=== PATIENT | male | born 1940 | race Asian ===

== ENCOUNTER 2016-07-25 13:47 | Inpatient (IN) | payer MEDICARE, MEDICAID ==
[~2016-07-25] VITALS: Ht 177.8 cm; Wt 59.0 kg
[2016-07-25] MEDS ORDERED: DIGOXIN0.125 MG/2 ORAL (13:52)
[2016-07-25] MEDS ORDERED: SINGULAIR10 MG ORAL (13:52)
[2016-07-25] MEDS ORDERED: METFORMIN HCL500 M1 ORAL (13:52)
[2016-07-25] MEDS ORDERED: VICODIN HP 10-1 EACH ORAL (13:52)
[2016-07-25] MEDS ORDERED: SIMVASTATIN5 MG ORAL (13:52)
[2016-07-25] MEDS ORDERED: LYRICA75 M1 ORAL (13:52)
[2016-07-25] MEDS ORDERED: HUMALOG100 UNIT/4 SUBQ (13:52)
[2016-07-25] MEDS ORDERED: PROSCAR5 MG ORAL (13:52)
[2016-07-25] MEDS ORDERED: Albuterol ud Inhalation HHN ONE (14:15)
[2016-07-25] MEDS ORDERED: Ipratropium 0.02% Inh Soln 2.5ml UD HHN ONE (14:15)
[2016-07-25] MEDS ORDERED: Solu-MEDROL 125mg Inj IVP ONE (14:15)
[2016-07-25 15:00] VITALS: BP 101/78
--- NOTE | 2016-07-25 15:10 | Diagnostic Imaging Report ---
Indication: Dyspnea Comparison: None A single view chest radiograph was obtained. Findings: No definite infiltrate or pulmonary vascular congestion identified. The heart is normal in size. The aorta is mildly enlarged consistent with atherosclerotic vascular disease. The bones are osteopenic. Impression: No acute disease
[2016-07-25 15:13] LABS: EOSINOPHILS % (AUTO) 1.2 % (0.0-3.0); LYMPHOCYTES % (AUTO) 10.9 % (20.0-45.0); MEAN CORPUSCULAR HEMOGLOBIN 31.3 PG (27.0-31.0); MEAN CORPUSCULAR HGB CONC 32.4 G/DL (32.0-36.0); MEAN CORPUSCULAR VOLUME 97 FL (80-99); MEAN PLATELET VOLUME 7.6 FL (6.5-10.1); MONOCYTES % (AUTO) 7.9 % (1.0-10.0); PLATELET COUNT 309 K/UL (150-450); RED BLOOD COUNT 5.42 M/UL (4.70-6.10); RED CELL DISTRIBUTION WIDTH 10.5 % (11.6-14.8); WHITE BLOOD COUNT 16.5 K/UL (4.8-10.8)
--- NOTE | 2016-07-25 15:15 | Emergency Room Report ---
History of Present Illness General Chief Complaint: Pain Source: Patient, Family Member, EMS Present Illness HPI 75-year-old male presents to ED for evaluation. Patient states he feels short of breath and has chest pain. Also noting pain in his neck and back. States having symptoms for many weeks to months now. Patient is a poor historian. Daughter is at bedside. States that patient has history of asthma, smokes. States that he cannot breathe. Also having a cough which is dry for several weeks now. Denies fevers or chills. Patient is also complaining of pain to his neck and back. Pain is chronic. Patient has had steroid injections in his neck and back for many years now. Pain is throbbing, 8/10. Nonradiating. No other aggravating or relieving factors. Denies any other associated symptoms Allergies: Coded Allergies: No Known Allergies (Unverified , 07/25/16) Patient History Past Medical History: DM, HTN, AFib, asthma Past Surgical History: none Pertinent Family History: none Social History: Reports: smoking, Denies: alcohol use, drug use Immunizations: UTD Reviewed Nursing Documentation: PMH: Agreed, PSxH: Agreed Nursing Documentation-PMH Past Medical History: No History, Except For Hx Cardiac Problems: Yes - AFIB Hx Hypertension: Yes Hx Asthma: Yes Hx Diabetes: Yes Review of Systems All Other Systems: negative except mentioned in HPI Physical Exam Vital Signs Date Time Temp Pulse Resp B/P Pulse Ox O2 Delivery O2 Flow Rate FiO2 07/25/16 13:41 98.2 98 20 140/73 96 Room Air 07/25/16 14:16 21 Sp02 EP Interpretation: reviewed, normal General Appearance: no apparent distress, alert, GCS 15, non-toxic Head: normocephalic Eyes: bilateral eye PERRL, bilateral eye normal inspection ENT: normal ENT inspection Neck: normal inspection Respiratory: crackles, wheezing Cardiovascular #1: regular rate, rhythm, no edema Gastrointestinal: normal bowel sounds, non tender, soft, non-distended, no guarding, no rebound Rectal: deferred Genitourinary: no CVA tenderness Musculoskeletal: normal inspection Neurologic: alert, oriented x3, responsive, motor strength/tone normal, sensory intact, speech normal Psychiatric: normal inspection Skin: normal inspection Lymphatic: normal inspection Medical Decision Making Diagnostic Impression: Primary Impression: COPD exacerbation Additional Impressions: Hyperkalemia, diminished renal excretion ARF (acute renal failure) Qualified Codes: N17.9 - Acute kidney failure, unspecified ER Course Hospital Course 75-year-old M presenting to ED with SOB. h/o COPD Differential diagnoses include: Pneumonia, CHF exacerbation, pneumothorax, fluid overload Clinical course Patient placed on stretcher. On cardiac/vascular sonographer with stable vitals. After initial history and physical, I ordered nebulizer treatments. I ordered labs, IV fluids, EKG, chest x-ray, blood cultures, UA. Labs - noted leukocytosis noted, hemoglobin/hematocrit stable, K 6.2, BUN/Cr elevated. CXR - hyperinflated lungs. no infiltrates abx given. IVFs given. given insulin, calcium, kayexelate Case discussed with Dr. Meyer and he agreed to the patient to his service for further care and support I feel this is a highly complex case requiring extensive working including EKG/ Rhythm strip, Xray/CT/US, Blood/urine lab work, repeat exams while in ED, and administration of strong opiates/narcotics for pain control, admission to hospital or close patient follow up. Diagnosis - COPD exacerbation, hyperkalemia, ARF Patient admitted to telemetry in serious condition Labs Test 07/25/16 14:40 07/25/16 15:40 White Blood Count 16.5 K/UL (4.8-10.8) Red Blood Count 5.42 M/UL (4.70-6.10) Hemoglobin 17.0 G/DL (14.2-18.0) Hematocrit 52.4 % (42.0-52.0) Mean Corpuscular Volume 97 FL (80-99) Mean Corpuscular Hemoglobin 31.3 PG (27.0-31.0) Mean Corpuscular Hemoglobin Concent 32.4 G/DL (32.0-36.0) Red Cell Distribution Width 10.5 % (11.6-14.8) Platelet Count 309 K/UL (150-450) Mean Platelet Volume 7.6 FL (6.5-10.1) Neutrophils (%) (Auto) 79.0 % (45.0-75.0) Lymphocytes (%) (Auto) 10.9 % (20.0-45.0) Monocytes (%) (Auto) 7.9 % (1.0-10.0) Eosinophils (%) (Auto) 1.2 % (0.0-3.0) Basophils (%) (Auto) 1.0 % (0.0-2.0) Sodium Level 128 mEQ/L (135-145) Potassium Level 6.2 mEQ/L (3.4-4.9) Chloride Level 88 mEQ/L (98-107) Carbon Dioxide Level 26 mEQ/L (20-30) Anion Gap 14 (5-15) Blood Urea Nitrogen 27 mg/dL (7-23) Creatinine 1.7 mg/dL (0.7-1.2) Estimat Glomerular Filtration Rate mL/min (>60) Glucose Level 302 mg/dL (74-106) Lactic Acid Level 1.90 mmol/L (0.66-2.22) Calcium Level 10.1 mg/dL (8.6-10.2) Total Bilirubin 0.5 mg/dL (0.0-1.2) Aspartate Amino Transf (AST/SGOT) 23 U/L (5-40) Alanine Aminotransferase (ALT/SGPT) 26 U/L (3-41) Alkaline Phosphatase 108 U/L (40-129) Total Creatine Kinase 113 U/L (38-174) Creatine Kinase MB 4.1 ng/mL (< 6.7) Creatine Kinase MB Relative Index 3.6 Troponin I < 0.30 ng/mL (<=0.30) Pro-B-Type Natriuretic Peptide 163 pg/mL (0-450) Total Protein 8.8 g/dL (6.6-8.7) Albumin 4.7 g/dL (3.5-5.2) Globulin 4.1 g/dL Albumin/Globulin Ratio 1.1 (1.0-2.7) Urine Color Pale yellow Urine Appearance Clear Urine pH 7 (4.5-8.0) Urine Specific [place] 1.010 (1.005-1.035) Urine Protein 1+ (NEGATIVE) Urine Glucose (UA) 4+ (NEGATIVE) Urine Ketones Negative (NEGATIVE) Urine Occult Blood Negative (NEGATIVE) Urine Nitrite Negative (NEGATIVE) Urine Bilirubin Negative (NEGATIVE) Urine Urobilinogen Normal MG/DL (0.0-1.0) Urine Leukocyte Esterase Negative (NEGATIVE) Urine RBC 0-2 /HPF (0 - 0) Urine WBC 0-2 /HPF (0 - 0) Urine Squamous Epithelial Cells None /LPF (NONE/OCC) Urine Amorphous Sediment Few /LPF (NONE) Urine Bacteria Few /HPF (NONE) EKG Diagnostic Results Rate: normal Rhythm: NSR ST Segments: no acute changes ASA given to the pt in ED: No Rhythm Strip Diag. Results EP Interpretation: yes Rhythm: NSR, no PVC's, no ectopy Chest X-Ray Diagnostic Results EP Interpretation: Yes Findings: no consolidation, no effusion, no pneumothorax, no acute cardiopulmonary disease Number of Views: 1 Last Vital Signs Date Time Temp Pulse Resp B/P Pulse Ox O2 Delivery O2 Flow Rate FiO2 07/25/16 14:41 93 21 100 Room Air 21 07/25/16 13:41 98.2 140/73 Status: improved Disposition: ADMITTED INPATIENT Condition: Serious Referrals: NON PHYSICIAN (PCP) ROSELINE BARLOW M.D. Jul 25, 2016 15:15
[2016-07-25 15:30] LABS: TROPONIN I < 0.30 ng/mL (<=0.30)
[2016-07-25 15:33] LABS: ALANINE AMINOTRANSFERASE 26 U/L (3-41); ALBUMIN/GLOBULIN RATIO 1.1 (1.0-2.7); ANION GAP 14 (5-15); ASPARTATE AMINO TRANSFERASE 23 U/L (5-40); CALCIUM 10.1 mg/dL (8.6-10.2); CARBON DIOXIDE 26 mEQ/L (20-30); CHLORIDE 88 mEQ/L (98-107); CREATININE 1.7 mg/dL (0.7-1.2); HEMOLYSIS 7; SODIUM 128 mEQ/L (135-145); TOTAL PROTEIN 8.8 g/dL (6.6-8.7)
[2016-07-25 15:35] LABS: POTASSIUM 6.2 mEQ/L (3.4-4.9)
[2016-07-25 15:44] LABS: CKMB 4.1 ng/mL (< 6.7)
[2016-07-25] MEDS ORDERED: Sodium Polystyrene Sulfonate 15gm Powder ORAL ONE (15:45)
[2016-07-25] MEDS ORDERED: Calcium Gluconate 1gm/10ml vial IVP ONE (15:45)
[2016-07-25 16:06] LABS: APPEARANCE,URINE CLEAR; KETONES,URINE NEGATIVE (NEGATIVE); LEUKOCYTE ESTERASE ,URINE NEGATIVE (NEGATIVE); NITRITE,URINE NEGATIVE (NEGATIVE); PH,URINE 7 (4.5-8.0); PROTEIN,URINE 1+ (NEGATIVE); UROBILINOGEN,URINE NORMAL MG/DL (0.0-1.0)
[2016-07-25 16:16] LABS: RBC,URINE 0-2 /HPF (0 - 0); WBC,URINE 0-2 /HPF (0 - 0)
[2016-07-25 16:17] LABS: AMORPHOUS SEDIMENT,UR FEW /LPF; BACTERIA,URINE FEW /HPF
[2016-07-25 18:23] VITALS: BP 115/67
--- NOTE | 2016-07-25 19:13 | History and Physical ---
History of Present Illness General Date patient seen: Jul 25, 2016 Reason for Hospitalization: dysnea Present Illness HPI 75-year-old male with hx of COPD, DM, presents to ED for evaluation of short of breath, difficulty breathing and chest pain.Patient has history of asthma, and still smokes. Also having a cough which is dry for several weeks now. No other aggravating or relieving factors. Denies any other associated symptoms. Patient is admitted for exacerbation of COPD and respiratory insufficiency. Allergies: Coded Allergies: No Known Allergies (Unverified , 07/25/16) Medication History Scheduled Digoxin* (Digoxin*), Unknown Dose ORAL DAILY, (Reported) Finasteride* (Proscar*), Unknown Dose ORAL DAILY, (Reported) Metformin Hcl* (Metformin Hcl*), Unknown Dose ORAL TWICE A DAY, (Reported) Montelukast Sodium* (Singulair*), Unknown Dose ORAL DAILY, (Reported) Pregabalin* (Lyrica*), Unknown Dose ORAL THREE TIMES A DAY, (Reported) Simvastatin (Zocor), Unknown Dose ORAL BEDTIME, (Reported) Scheduled PRN Hydrocodone/Acetaminophen 10-300 Mg Tablet (Vicodin Hp 10-300 Mg Tablet), Unknown Dose ORAL Q4H PRN for For Pain, (Reported) Miscellaneous Medications Insulin Lispro (Humalog), Unknown Dose SUBQ, (Reported) Patient History Healthcare decision maker Resuscitation status Advanced Directive on File Review of Systems Constitutional: Reports: malaise Respiratory: Reports: cough, shortness of breath Cardiovascular: Reports: palpitations, syncope Gastrointestinal: Reports: no symptoms Genitourinary: Reports: no symptoms Musculoskeletal: Reports: no symptoms Skin: Reports: no symptoms Physical Exam General Appearance: WD/WN, alert Lines, tubes and drains: peripheral, PICC HEENT: normocephalic, atraumatic Respiratory/Chest: chest wall non-tender, lungs clear Cardiovascular/Chest: normal peripheral pulses, regular rhythm Abdomen: normal bowel sounds, non tender Genitourinary/Rectal: normal genital exam, normal rectal exam Extremities: normal range of motion Last 24 Hour Vital Signs Date Time Temp Pulse Resp B/P Pulse Ox O2 Delivery O2 Flow Rate FiO2 07/25/16 18:23 97.2 97 14 115/67 96 Room Air 07/25/16 15:00 98.1 98 21 101/78 99 Room Air 21 07/25/16 14:41 93 21 100 Room Air 21 07/25/16 14:16 21 07/25/16 14:16 88 20 Room Air 21 07/25/16 14:16 88 20 96 Room Air 21 07/25/16 13:41 98.2 98 20 140/73 96 Room Air Laboratory Tests Test 07/25/16 14:40 07/25/16 15:40 White Blood Count 16.5 K/UL (4.8-10.8) H Red Blood Count 5.42 M/UL (4.70-6.10) Hemoglobin 17.0 G/DL (14.2-18.0) Hematocrit 52.4 % (42.0-52.0) H Mean Corpuscular Volume 97 FL (80-99) Mean Corpuscular Hemoglobin 31.3 PG (27.0-31.0) H Mean Corpuscular Hemoglobin Concent 32.4 G/DL (32.0-36.0) Red Cell Distribution Width 10.5 % (11.6-14.8) L Platelet Count 309 K/UL (150-450) Mean Platelet Volume 7.6 FL (6.5-10.1) Neutrophils (%) (Auto) 79.0 % (45.0-75.0) H Lymphocytes (%) (Auto) 10.9 % (20.0-45.0) L Monocytes (%) (Auto) 7.9 % (1.0-10.0) Eosinophils (%) (Auto) 1.2 % (0.0-3.0) Basophils (%) (Auto) 1.0 % (0.0-2.0) Sodium Level 128 mEQ/L (135-145) L Potassium Level 6.2 mEQ/L (3.4-4.9) *H Chloride Level 88 mEQ/L (98-107) L Carbon Dioxide Level 26 mEQ/L (20-30) Anion Gap 14 (5-15) Blood Urea Nitrogen 27 mg/dL (7-23) H Creatinine 1.7 mg/dL (0.7-1.2) H Estimat Glomerular Filtration Rate mL/min (>60) Glucose Level 302 mg/dL (74-106) H Lactic Acid Level 1.90 mmol/L (0.66-2.22) Calcium Level 10.1 mg/dL (8.6-10.2) Total Bilirubin 0.5 mg/dL (0.0-1.2) Aspartate Amino Transf (AST/SGOT) 23 U/L (5-40) Alanine Aminotransferase (ALT/SGPT) 26 U/L (3-41) Alkaline Phosphatase 108 U/L (40-129) Total Creatine Kinase 113 U/L (38-174) Creatine Kinase MB 4.1 ng/mL (< 6.7) Creatine Kinase MB Relative Index 3.6 Troponin I < 0.30 ng/mL (<=0.30) Pro-B-Type Natriuretic Peptide 163 pg/mL (0-450) Total Protein 8.8 g/dL (6.6-8.7) H Albumin 4.7 g/dL (3.5-5.2) Globulin 4.1 g/dL Albumin/Globulin Ratio 1.1 (1.0-2.7) Urine Color Pale yellow Urine Appearance Clear Urine pH 7 (4.5-8.0) Urine Specific [place] 1.010 (1.005-1.035) Urine Protein 1+ (NEGATIVE) H Urine Glucose (UA) 4+ (NEGATIVE) H Urine Ketones Negative (NEGATIVE) Urine Occult Blood Negative (NEGATIVE) Urine Nitrite Negative (NEGATIVE) Urine Bilirubin Negative (NEGATIVE) Urine Urobilinogen Normal MG/DL (0.0-1.0) Urine Leukocyte Esterase Negative (NEGATIVE) Urine RBC 0-2 /HPF (0 - 0) H Urine WBC 0-2 /HPF (0 - 0) Urine Squamous Epithelial Cells None /LPF (NONE/OCC) Urine Amorphous Sediment Few /LPF (NONE) H Urine Bacteria Few /HPF (NONE) Height (Feet): 5 Height (Inches): 10.00 Weight (Pounds): 130 Assessment/Plan Problem List: (1) Acute respiratory failure ICD Codes: J96.00 - Acute respiratory failure, unspecified whether with hypoxia or hypercapnia SNOMED: 38018510 Qualifiers: Qualified Codes: J96.01 - Acute respiratory failure with hypoxia (2) ATN (acute tubular necrosis) ICD Codes: N17.0 - Acute kidney failure with tubular necrosis SNOMED: 40354414 (3) COPD exacerbation ICD Codes: J44.1 - Chronic obstructive pulmonary disease with (acute) exacerbation SNOMED: 539313226, 795363929 (4) Acute asthma exacerbation ICD Codes: J45.901 - Unspecified asthma with (acute) exacerbation SNOMED: 645045918 Assessment/Plan IV steroids IV antibiotics renal w/u cardiology w/u check dig level sliding scale JAN GIL Jul 25, 2016 19:13
[2016-07-25] MEDS ORDERED: DuoNeb 0.5-3(2.5)mg/3ml neb HHN PRN (19:15)
[2016-07-25] MEDS ORDERED: Ketorolac 30mg Inj IV PRN (19:15)
[2016-07-25] MEDS ORDERED: Promethazine/Codeine 5ml UD ORAL PRN (19:15)
[2016-07-25] MEDS ORDERED: Morphine Sulfate 2mg/ml Inj IVP PRN (19:15)
[2016-07-25] MEDS ORDERED: LORazepam Inj 2mg/ml 1ml IV PRN (19:15)
[2016-07-25] MEDS ORDERED: Nitroglycerin Subl 0.4mg tab (Bottle Of 25) SL PRN (19:15)
[2016-07-25 20:31] LABS: APPEARANCE,URINE CLEAR; KETONES,URINE NEGATIVE (NEGATIVE); LEUKOCYTE ESTERASE ,URINE NEGATIVE (NEGATIVE); NITRITE,URINE NEGATIVE (NEGATIVE); PH,URINE 5 (4.5-8.0); PROTEIN,URINE 1+ (NEGATIVE); UROBILINOGEN,URINE NORMAL MG/DL (0.0-1.0)
[2016-07-25 20:38] LABS: BACTERIA,URINE FEW /HPF; RBC,URINE 0-2 /HPF (0 - 0); WBC,URINE 0-2 /HPF (0 - 0)
--- NOTE | 2016-07-25 20:38 | Cardiology Progress Note ---
Assessment/Plan Assessment/Plan chest pain low back and neck pain hyponatremia hyperkalemia dm htn tobacoo use do serial enzyme ekg echo venous dupelx ivf cortisol Subjective Cardiovascular: Denies: chest pain - rigth side and the abd Respiratory: Reports: shortness of breath Gastrointestinal/Abdominal: Reports: abdominal pain Genitourinary: Denies: burning Objective Last 24 Hour Vital Signs Date Time Temp Pulse Resp B/P Pulse Ox O2 Delivery O2 Flow Rate FiO2 07/25/16 20:02 112 18 Room Air 21 07/25/16 18:23 97.2 97 14 115/67 96 Room Air 07/25/16 15:00 98.1 98 21 101/78 99 Room Air 21 07/25/16 14:41 93 21 100 Room Air 21 07/25/16 14:16 21 07/25/16 14:16 88 20 Room Air 21 07/25/16 14:16 88 20 96 Room Air 21 07/25/16 13:41 98.2 98 20 140/73 96 Room Air General Appearance: alert Neck: no JVD Cardiovascular: normal rate, regular rhythm Respiratory/Chest: lungs clear Abdomen: normal bowel sounds, non tender, soft Extremities: no swelling Laboratory Tests Test 07/25/16 14:40 07/25/16 15:40 07/25/16 18:15 07/25/16 20:00 White Blood Count 16.5 K/UL (4.8-10.8) H Red Blood Count 5.42 M/UL (4.70-6.10) Hemoglobin 17.0 G/DL (14.2-18.0) Hematocrit 52.4 % (42.0-52.0) H Mean Corpuscular Volume 97 FL (80-99) Mean Corpuscular Hemoglobin 31.3 PG (27.0-31.0) H Mean Corpuscular Hemoglobin Concent 32.4 G/DL (32.0-36.0) Red Cell Distribution Width 10.5 % (11.6-14.8) L Platelet Count 309 K/UL (150-450) Mean Platelet Volume 7.6 FL (6.5-10.1) Neutrophils (%) (Auto) 79.0 % (45.0-75.0) H Lymphocytes (%) (Auto) 10.9 % (20.0-45.0) L Monocytes (%) (Auto) 7.9 % (1.0-10.0) Eosinophils (%) (Auto) 1.2 % (0.0-3.0) Basophils (%) (Auto) 1.0 % (0.0-2.0) Sodium Level 128 mEQ/L (135-145) L Potassium Level 6.2 mEQ/L (3.4-4.9) *H Chloride Level 88 mEQ/L (98-107) L Carbon Dioxide Level 26 mEQ/L (20-30) Anion Gap 14 (5-15) Blood Urea Nitrogen 27 mg/dL (7-23) H Creatinine 1.7 mg/dL (0.7-1.2) H Estimat Glomerular Filtration Rate mL/min (>60) Glucose Level 302 mg/dL (74-106) H Lactic Acid Level 1.90 mmol/L (0.66-2.22) Calcium Level 10.1 mg/dL (8.6-10.2) Total Bilirubin 0.5 mg/dL (0.0-1.2) Aspartate Amino Transf (AST/SGOT) 23 U/L (5-40) Alanine Aminotransferase (ALT/SGPT) 26 U/L (3-41) Alkaline Phosphatase 108 U/L (40-129) Total Creatine Kinase 113 U/L (38-174) Creatine Kinase MB 4.1 ng/mL (< 6.7) Creatine Kinase MB Relative Index 3.6 Troponin I < 0.30 ng/mL (<=0.30) Pro-B-Type Natriuretic Peptide 163 pg/mL (0-450) Total Protein 8.8 g/dL (6.6-8.7) H Albumin 4.7 g/dL (3.5-5.2) Globulin 4.1 g/dL Albumin/Globulin Ratio 1.1 (1.0-2.7) Urine Color Pale yellow Pale yellow Urine Appearance Clear Clear Urine pH 7 (4.5-8.0) 5 (4.5-8.0) Urine Specific [place] 1.010 (1.005-1.035) 1.015 (1.005-1.035) Urine Protein 1+ (NEGATIVE) H 1+ (NEGATIVE) H Urine Glucose (UA) 4+ (NEGATIVE) H 4+ (NEGATIVE) H Urine Ketones Negative (NEGATIVE) Negative (NEGATIVE) Urine Occult Blood Negative (NEGATIVE) Negative (NEGATIVE) Urine Nitrite Negative (NEGATIVE) Negative (NEGATIVE) Urine Bilirubin Negative (NEGATIVE) Negative (NEGATIVE) Urine Urobilinogen Normal MG/DL (0.0-1.0) Normal MG/DL (0.0-1.0) Urine Leukocyte Esterase Negative (NEGATIVE) Negative (NEGATIVE) Urine RBC 0-2 /HPF (0 - 0) H Pending Urine WBC 0-2 /HPF (0 - 0) Pending Urine Squamous Epithelial Cells None /LPF (NONE/OCC) Pending Urine Amorphous Sediment Few /LPF (NONE) H Urine Bacteria Few /HPF (NONE) Pending Plasma/Serum Osmolality Pending Urine Eosinophils Pending Urine Osmolality Pending Urine Random Sodium Pending Urine Random Chloride Pending Urine Potassium Timed Pending VALARIE CRUMP Jul 25, 2016 20:38
[2016-07-25] MEDS ORDERED: NovoLOG Insulin Flexpen SUBQ SCH (21:00)
[2016-07-25 21:41] LABS: ALANINE AMINOTRANSFERASE 17 U/L (3-41); ALBUMIN/GLOBULIN RATIO 1.1 (1.0-2.7); ANION GAP 17 (5-15); ASPARTATE AMINO TRANSFERASE 16 U/L (5-40); CALCIUM 8.5 mg/dL (8.6-10.2); CARBON DIOXIDE 20 mEQ/L (20-30); CHLORIDE 91 mEQ/L (98-107); CREATININE 1.5 mg/dL (0.7-1.2); HEMOLYSIS 13; MAGNESIUM 1.6 mg/dL (1.7-2.5); PHOSPHORUS 2.8 mg/dL (2.5-4.8); SODIUM 128 mEQ/L (135-145); TOTAL PROTEIN 6.1 g/dL (6.6-8.7); URIC ACID 4.6 mg/dL (3.0-7.5)
[2016-07-25] MEDS: Zoysn 3.37gm in D5W 110ml IVPB SCH ×2 (21:42→22:00)
[2016-07-25] MEDS: Theophylline ER 100mg ORAL SCH (21:43)
[2016-07-25 21:46] LABS: POTASSIUM 6.1 mEQ/L (3.4-4.9)
[2016-07-25 21:54] LABS: DIGOXIN 0.4 ng/mL (0.5-2.0); FREE T3 2.8 pg/mL (2.3-4.2); THYROID STIMULATING HORMONE 0.356 uIU/mL (0.300-4.500)
[2016-07-25] MEDS: Heparin 5000 units/ml inj SUBQ SCH (21:57)
[2016-07-25] MEDS: NovoLOG Insulin Flexpen SUBQ SCH (21:58)
[2016-07-25] MEDS ORDERED: Piperacillin/Tazobactam 2.25 GM in D5W 55 ML IV SCH (22:00)
[2016-07-25] MEDS ORDERED: Levemir Flexpen SUBQ SCH (23:00)
[2016-07-25] MEDS ORDERED: NovoLOG Insulin Flexpen SUBQ ONE (23:30)
[2016-07-26] VITALS: BP 109/66
[2016-07-26] MEDS: Zoysn 3.37gm in D5W 110ml IVPB SCH ×2 (01:00→08:31)
[2016-07-26] MEDS ORDERED: Levemir Flexpen SUBQ ONE (01:15)
[2016-07-26 04:00] VITALS: BP 106/58
[2016-07-26] MEDS: NovoLOG Insulin Flexpen SUBQ SCH ×2 (06:30→11:32)
[2016-07-26 08:19] VITALS: BP 128/70
[2016-07-26] MEDS: Theophylline ER 100mg ORAL SCH (08:31)
--- NOTE | 2016-07-26 08:33 | Consultation ---
Consult Note Consult Note ID CONSULT: Dict# [id number] Assessment/Plan ASSESSMENT: 75 y/o male with: // Asthma / COPD exacerbation r/o influenza - SCx pending - CXR 07/25: No definite infiltrate or pulmonary vascular congestion identified. // Leukocytosis, afebrile ( on steroids ) // Acute on chronic respiratory failure // Renal insufficiency ?acute vs chronic - improved // Hyponatremia / electrolyte imbalance // DM2 with hyperglycemia // Chronic neck, back pain // Tobacco abuse // NKDA // Full Code PLAN: - continue empiric zosyn d# . Ok to complete course with PO levaquin at discharge - taper steroids per pulm - f/u cultures, influenza - monitor CBC, temperatures - monitor BMP - monitor CXR - tobacco cessation Thanks! Will follow CAROLYN CRAWFORD Jul 26, 2016 08:33
[2016-07-26] MEDS: Heparin 5000 units/ml inj SUBQ SCH (08:35)
[2016-07-26 08:47] LABS: ANION GAP 15 (5-15); CALCIUM 9.3 mg/dL (8.6-10.2); CARBON DIOXIDE 23 mEQ/L (20-30); CHLORIDE 96 mEQ/L (98-107); CREATININE 1.5 mg/dL (0.7-1.2); HEMOLYSIS 4; POTASSIUM 4.9 mEQ/L (3.4-4.9); SODIUM 134 mEQ/L (135-145)
[2016-07-26] MEDS ORDERED: Digoxin 0.125mg tab ORAL SCH (09:00)
[2016-07-26] MEDS ORDERED: Levemir Flexpen SUBQ SCH (09:00)
--- NOTE | 2016-07-26 09:57 | Consultation ---
DATE OF CONSULTATION: 07/26/2016 INFECTIOUS DISEASE CONSULTATION: CONSULTING PHYSICIAN: Marques Will M.D. REQUESTING PHYSICIAN: Jhoana Meyer M.D. REASON FOR CONSULTATION: Leukocytosis. HISTORY OF PRESENT ILLNESS: This is a 75-year-old diabetic male, smoker with a history of asthma and chronic obstructive pulmonary disease admitted on 07/25/2016 with chest pain, shortness of breath, and dry cough. Troponin is negative x1. Chest x-ray shows no definite infiltrate or pulmonary vascular congestion. He has evidence of a leukocytosis with left shift, but no fever, renal insufficiency, hyponatremia, and electrolyte imbalance. The patient states his breathing has improved and his breathing easy on room air in and wants to go home. Cultures are pending as well as influenza screen and he has been started on empiric Zosyn and steroids. ID now consulted to assist in management. PAST MEDICAL HISTORY: 1. Diabetes. 2. Asthma. 3. Chronic obstructive pulmonary disease. 4. Hypertension. 5. Atrial fibrillation. PAST SURGICAL HISTORY: None. FAMILY HISTORY: Noncontributory. SOCIAL HISTORY: The patient is an active smoker. ALLERGIES: No known drug allergies. MEDICATIONS: 1. Zosyn a day. 2. Solu-Medrol. 3. Digoxin. 4. Insulin. 5. Subcutaneous heparin. 6. Theophylline. REVIEW OF SYSTEMS: As per history of present illness. Ten systems reviewed. All pertinent positives and negatives noted. PHYSICAL EXAMINATION: VITAL SIGNS: Maximum temperature 98.2, blood pressure 120/70, heart rate in the 90s, respiratory rate 20, and saturating 96% on room air. GENERAL: No apparent distress. Nontoxic appearing. CARDIOVASCULAR: Regular rate and rhythm. No murmurs. PULMONARY: Clear to auscultation bilaterally. Nonlabored. ABDOMINAL EXAM: Bowel sounds present. Soft, nondistended, and nontender. EXTREMITIES: No edema. SKIN EXAM: No rash. NEUROLOGICAL EXAM: Alert, oriented x3, nonfocal. LABORATORY DATA: White blood cell count 16.5 with the left shift, hemoglobin 17, and platelets 309,000. Sodium 128, potassium 6.1, chloride 91, bicarbonate 20, BUN 25, and creatinine 1.5 decreased from 1.7. Lactic acid 1.9. Liver function tests within normal limits. Troponin negative x1. MICROBIOLOGY: 1. 07/25/2016 blood culture pending. 2. 07/25/2016 sputum culture pending. 3. 07/25/2016 influenza screen pending. IMAGIN. 07/25/2016 chest x-ray shows no definite infiltrate or pulmonary vascular congestion identified. 2. 07/26/2016 echocardiogram pending. ASSESSMENT: 1. Asthma/chronic obstructive pulmonary disease exacerbation, rule out influenza. Sputum cultures pending. Chest x-ray shows no definite infiltrate or pulmonary vascular congestion. 2. Leukocytosis, afebrile on steroids. 3. Acute on chronic respiratory failure. 4. Renal insufficiency question acute versus chronic, improved. 5. Hyponatremia /Electrolyte imbalance. 6. Diabetes type 2 with hyperglycemia. 7. Chronic neck and back pain. 8. Tobacco abuse. 9. No known drug allergies. 10. Full Code. PLAN: 1. Continue empiric Zosyn day # 105. Okay to complete course with oral Levaquin at discharge. 2. Taper steroids per pulmonary. 3. Follow up blood cultures and influenza screen. 4. Monitor CBC and temperatures. 5. Monitor BMP. 6. Monitor chest x-ray. 7. Tobacco cessation Thank you. We will follow. Marques Will M.D. DR: KAUSHAL JOB#: [id number] CC: Jhoana Meyer M.D.; Fax#: [phone] Juarez M.D; Fax#: [phone]
--- NOTE | 2016-07-26 10:42 | Cardiology Progress Note ---
Assessment/Plan Assessment/Plan uri asthm exacerbation chest pain low back and neck pain hyponatremia hyperkalemia dm htn tobacoo use do serial enzyme resutl pending ekg echo venous dupelx ivf cortisol lever drawn result pending pt want to go home awit trop and echo and ekg form oliverio full consuslt dicated [id number] Objective Last 24 Hour Vital Signs Date Time Temp Pulse Resp B/P Pulse Ox O2 Delivery O2 Flow Rate FiO2 07/26/16 08:31 91 07/26/16 08:19 97.5 91 20 128/70 96 Room Air 07/26/16 04:00 98.2 80 16 106/58 98 Room Air 07/26/16 04:00 82 07/26/16 00:00 98.1 90 16 109/66 96 Room Air 07/26/16 00:00 91 07/25/16 20:02 112 18 Room Air 21 07/25/16 20:00 101 07/25/16 18:23 97.2 97 14 115/67 96 Room Air 07/25/16 17:55 96 18 100/64 97 Room Air 07/25/16 15:00 98.1 98 21 101/78 99 Room Air 21 07/25/16 14:41 93 21 100 Room Air 21 07/25/16 14:16 21 07/25/16 14:16 88 20 Room Air 21 07/25/16 14:16 88 20 96 Room Air 21 07/25/16 13:41 98.2 98 20 140/73 96 Room Air Intake and Output 07/25/16 07/26/16 19:00 07:00 Intake Total 1650 ml 240 ml Output Total 550 ml Balance 1650 ml -310 ml Intake Oral 0 ml 240 ml IV Total 1650 ml Output Urine Total 550 ml # Voids 1 # Bowel Movements 1 Laboratory Tests Test 07/25/16 14:40 07/25/16 15:40 07/25/16 18:15 07/25/16 20:00 White Blood Count 16.5 K/UL (4.8-10.8) H Red Blood Count 5.42 M/UL (4.70-6.10) Hemoglobin 17.0 G/DL (14.2-18.0) Hematocrit 52.4 % (42.0-52.0) H Mean Corpuscular Volume 97 FL (80-99) Mean Corpuscular Hemoglobin 31.3 PG (27.0-31.0) H Mean Corpuscular Hemoglobin Concent 32.4 G/DL (32.0-36.0) Red Cell Distribution Width 10.5 % (11.6-14.8) L Platelet Count 309 K/UL (150-450) Mean Platelet Volume 7.6 FL (6.5-10.1) Neutrophils (%) (Auto) 79.0 % (45.0-75.0) H Lymphocytes (%) (Auto) 10.9 % (20.0-45.0) L Monocytes (%) (Auto) 7.9 % (1.0-10.0) Eosinophils (%) (Auto) 1.2 % (0.0-3.0) Basophils (%) (Auto) 1.0 % (0.0-2.0) Sodium Level 128 mEQ/L (135-145) L Potassium Level 6.2 mEQ/L (3.4-4.9) *H Chloride Level 88 mEQ/L (98-107) L Carbon Dioxide Level 26 mEQ/L (20-30) Anion Gap 14 (5-15) Blood Urea Nitrogen 27 mg/dL (7-23) H Creatinine 1.7 mg/dL (0.7-1.2) H Estimat Glomerular Filtration Rate mL/min (>60) Glucose Level 302 mg/dL (74-106) H Lactic Acid Level 1.90 mmol/L (0.66-2.22) Calcium Level 10.1 mg/dL (8.6-10.2) Total Bilirubin 0.5 mg/dL (0.0-1.2) Aspartate Amino Transf (AST/SGOT) 23 U/L (5-40) Alanine Aminotransferase (ALT/SGPT) 26 U/L (3-41) Alkaline Phosphatase 108 U/L (40-129) Total Creatine Kinase 113 U/L (38-174) Creatine Kinase MB 4.1 ng/mL (< 6.7) Creatine Kinase MB Relative Index 3.6 Troponin I < 0.30 ng/mL (<=0.30) Pro-B-Type Natriuretic Peptide 163 pg/mL (0-450) Total Protein 8.8 g/dL (6.6-8.7) H Albumin 4.7 g/dL (3.5-5.2) Globulin 4.1 g/dL Albumin/Globulin Ratio 1.1 (1.0-2.7) Urine Color Pale yellow Pale yellow Urine Appearance Clear Clear Urine pH 7 (4.5-8.0) 5 (4.5-8.0) Urine Specific [place] 1.010 (1.005-1.035) 1.015 (1.005-1.035) Urine Protein 1+ (NEGATIVE) H 1+ (NEGATIVE) H Urine Glucose (UA) 4+ (NEGATIVE) H 4+ (NEGATIVE) H Urine Ketones Negative (NEGATIVE) Negative (NEGATIVE) Urine Occult Blood Negative (NEGATIVE) Negative (NEGATIVE) Urine Nitrite Negative (NEGATIVE) Negative (NEGATIVE) Urine Bilirubin Negative (NEGATIVE) Negative (NEGATIVE) Urine Urobilinogen Normal MG/DL (0.0-1.0) Normal MG/DL (0.0-1.0) Urine Leukocyte Esterase Negative (NEGATIVE) Negative (NEGATIVE) Urine RBC 0-2 /HPF (0 - 0) H 0-2 /HPF (0 - 0) H Urine WBC 0-2 /HPF (0 - 0) 0-2 /HPF (0 - 0) Urine Squamous Epithelial Cells None /LPF (NONE/OCC) None /LPF (NONE/OCC) Urine Amorphous Sediment Few /LPF (NONE) H Urine Bacteria Few /HPF (NONE) Few /HPF (NONE) Plasma/Serum Osmolality Pending Urine Sperm Occasional /LPF (NONE) Urine Eosinophils None seen Urine Osmolality Pending Urine Random Sodium 45 mmol/L Urine Random Chloride 51 mmol/L Urine Potassium Timed 40 mmol/L Test 07/25/16 20:20 07/26/16 07:25 Sodium Level 128 mEQ/L (135-145) L 134 mEQ/L (135-145) L Potassium Level 6.1 mEQ/L (3.4-4.9) *H 4.9 mEQ/L (3.4-4.9) Chloride Level 91 mEQ/L (98-107) L 96 mEQ/L (98-107) L Carbon Dioxide Level 20 mEQ/L (20-30) 23 mEQ/L (20-30) Anion Gap 17 (5-15) H 15 (5-15) Blood Urea Nitrogen 25 mg/dL (7-23) H 26 mg/dL (7-23) H Creatinine 1.5 mg/dL (0.7-1.2) H 1.5 mg/dL (0.7-1.2) H Estimat Glomerular Filtration Rate mL/min (>60) mL/min (>60) Glucose Level 563 mg/dL (74-106) #*H 126 mg/dL (74-106) #H Uric Acid 4.6 mg/dL (3.0-7.5) Calcium Level 8.5 mg/dL (8.6-10.2) L 9.3 mg/dL (8.6-10.2) Phosphorus Level 2.8 mg/dL (2.5-4.8) Magnesium Level 1.6 mg/dL (1.7-2.5) L Total Bilirubin 0.4 mg/dL (0.0-1.2) Aspartate Amino Transf (AST/SGOT) 16 U/L (5-40) Alanine Aminotransferase (ALT/SGPT) 17 U/L (3-41) Alkaline Phosphatase 71 U/L (40-129) Total Creatine Kinase 80 U/L (38-174) Total Protein 6.1 g/dL (6.6-8.7) #L Albumin 3.2 g/dL (3.5-5.2) L Globulin 2.9 g/dL Albumin/Globulin Ratio 1.1 (1.0-2.7) Thyroid Stimulating Hormone (TSH) 0.356 uIU/mL (0.300-4.500) Free Thyroxine 1.67 ng/dL (0.86-1.85) Free Triiodothyronine 2.8 pg/mL (2.3-4.2) Cortisol Pending Digoxin Level 0.4 ng/mL (0.5-2.0) L VALARIE CRUMP Jul 26, 2016 10:42
[2016-07-26 11:20] LABS: TROPONIN I < 0.30 ng/mL (<=0.30)
[2016-07-26 12:50] VITALS: BP 148/81
[2016-07-26 16:00] VITALS: BP 125/69
--- NOTE | 2016-07-26 16:28 | Pulmonology Progress Note ---
Assessment/Plan Problems: (1) Acute respiratory failure (2) ATN (acute tubular necrosis) (3) COPD exacerbation (4) Acute asthma exacerbation Assessment/Plan slightly better, still coughing bs high because of steroids no sputum yet pt wants to go home Subjective ROS Limited/Unobtainable: No Constitutional: Reports: no symptoms HEENT: Repors: no symptoms Respiratory: Reports: no symptoms Allergies: Coded Allergies: No Known Allergies (Unverified , 07/25/16) Objective Last 24 Hour Vital Signs Date Time Temp Pulse Resp B/P Pulse Ox O2 Delivery O2 Flow Rate FiO2 07/26/16 16:00 97.7 85 21 125/69 96 Room Air 07/26/16 14:40 92 16 Room Air 21 07/26/16 12:50 98.2 94 20 148/81 98 Room Air 07/26/16 08:31 91 07/26/16 08:19 97.5 91 20 128/70 96 Room Air 07/26/16 08:00 88 07/26/16 04:00 98.2 80 16 106/58 98 Room Air 07/26/16 04:00 82 07/26/16 00:00 98.1 90 16 109/66 96 Room Air 07/26/16 00:00 91 07/25/16 20:02 112 18 Room Air 21 07/25/16 20:00 101 07/25/16 18:23 97.2 97 14 115/67 96 Room Air 07/25/16 17:55 96 18 100/64 97 Room Air Intake and Output 07/25/16 07/26/16 19:00 07:00 Intake Total 1650 ml 240 ml Output Total 550 ml Balance 1650 ml -310 ml Intake Oral 0 ml 240 ml IV Total 1650 ml Output Urine Total 550 ml # Voids 1 # Bowel Movements 1 General Appearance: WD/WN HEENT: normocephalic, atraumatic Respiratory/Chest: chest wall non-tender, lungs clear Cardiovascular: normal peripheral pulses, normal rate, no JVD Abdomen: soft, non tender Genitourinary: normal external genitalia Skin: no ulcers Neurologic/Psychiatric: no motor/sensory deficits Laboratory Tests 07/25/16 18:15: Plasma/Serum Osmolality [Pending] 07/25/16 20:00: Urine Color Pale yellow, Urine Appearance Clear, Urine pH 5, Urine Specific [place] 1.015, Urine Protein 1+H, Urine Glucose (UA) 4+H, Urine Ketones Negative , Urine Occult Blood Negative, Urine Nitrite Negative, Urine Bilirubin Negative , Urine Urobilinogen Normal, Urine Leukocyte Esterase Negative, Urine RBC 0-2H, Urine WBC 0-2, Urine Squamous Epithelial Cells None, Urine Bacteria Few, Urine Sperm Occasional, Urine Eosinophils None seen, Urine Osmolality [Pending], Urine Random Sodium 45, Urine Random Chloride 51, Urine Potassium Timed 40 07/25/16 20:20: Sodium Level 128L, Potassium Level 6.1*H, Chloride Level 91L, Carbon Dioxide Level 20, Anion Gap 17H, Blood Urea Nitrogen 25H, Creatinine 1.5H, Estimat Glomerular Filtration Rate , Glucose Level 563#*H, Uric Acid 4.6, Calcium Level 8.5L, Phosphorus Level 2.8, Magnesium Level 1.6L, Total Bilirubin 0.4, Aspartate Amino Transf (AST/SGOT) 16, Alanine Aminotransferase (ALT/SGPT) 17, Alkaline Phosphatase 71, Total Creatine Kinase 80, Total Protein 6.1#L, Albumin 3.2L, Globulin 2.9, Albumin/Globulin Ratio 1.1, Thyroid Stimulating Hormone (TSH ) 0.356, Free Thyroxine 1.67, Free Triiodothyronine 2.8, Cortisol [Pending], Digoxin Level 0.4L 07/26/16 07:25: Sodium Level 134L, Potassium Level 4.9, Chloride Level 96L, Carbon Dioxide Level 23, Anion Gap 15, Blood Urea Nitrogen 26H, Creatinine 1.5H, Estimat Glomerular Filtration Rate , Glucose Level 126#H, Calcium Level 9.3, Troponin I < 0.30, Pro-B-Type Natriuretic Peptide 324 Current Medications Medications (Trade) Dose Ordered Sig/Roxana Route PRN Reason Start Time Stop Time Status Last Admin Dose Admin Albuterol/ Ipratropium (DuoNeb 0.5-3(2.5)mg/3ml) 3 ml Q4H PRN HHN dyspnea 07/25/16 19:15 07/30/16 19:14 Dextrose STAT PRN IV Hypoglycemia 07/25/16 19:15 08/24/16 19:14 Digoxin (Lanoxin) 0.125 mg DAILY ORAL 07/26/16 09:00 08/25/16 08:59 07/26/16 08:31 Heparin Sodium (Porcine) (Heparin 5000 units/ml) 5,000 units EVERY 12 HOURS SUBQ 07/25/16 21:00 08/24/16 20:59 07/26/16 08:35 Insulin Aspart (NovoLOG) BEFORE MEALS AND HS SUBQ 07/25/16 21:00 08/24/16 20:59 07/26/16 11:32 Insulin Detemir (Levemir) 20 units BID SUBQ 07/26/16 09:00 08/25/16 08:59 07/26/16 08:34 Ketorolac Tromethamine (Toradol 30mg) 30 mg Q8H PRN IV moderate pain 4-6 07/25/16 19:15 07/30/16 19:14 Lorazepam (Ativan 2mg/ml 1ml) 0.5 mg Q4H PRN IV For Anxiety 07/25/16 19:15 08/01/16 19:14 Methylprednisolone Sodium Succinate (Solu-MEDROL) 60 mg EVERY 6 HOURS IV 07/26/16 20:00 08/25/16 19:59 Morphine Sulfate (Morphine Sulfate) 2 mg Q4H PRN IVP severe pain 7-10 07/25/16 19:15 08/01/16 19:14 07/25/16 21:55 Nitroglycerin (Ntg) 0.4 mg Q5M X 3 DOSES PRN SL Prn Chest Pain 07/25/16 19:15 08/24/16 19:14 Ondansetron HCl (Zofran) 4 mg Q6H PRN IVP Nausea & Vomiting 07/25/16 19:15 08/24/16 19:14 Piperacillin Sod/ Tazobactam Sod/ Dextrose (Zosyn/D5W) 110 ml @ 27.5 mls/hr Q8H IVPB 07/26/16 01:00 08/02/16 00:59 07/26/16 08:31 Promethazine HCl/ Codeine (Phenergan with Codeine) 5 ml Q6H PRN ORAL cough 07/25/16 19:15 08/24/16 19:14 Temazepam (Restoril) 15 mg HSPRN PRN ORAL Insomnia 07/25/16 19:15 08/01/16 19:14 Theophylline (David-Dur) 100 mg EVERY 12 HOURS ORAL 07/25/16 21:00 08/24/16 20:59 07/26/16 08:31 JAN GIL Jul 26, 2016 16:28
[2016-07-26] MEDS ORDERED: Solu-MEDROL 125mg Inj IV SCH (20:00)
--- NOTE | 2016-07-26 23:27 | Consultation ---
DATE OF CONSULTATION: CARDIOLOGY CONSULTATION REASON FOR EVALUATION AND MANAGEMENT: Shortness of breath. HISTORY OF PRESENT ILLNESS: The patient is admitted to the hospital because of symptoms of shortness of breath and coughing and some sore throat. No sputum production. No fevers or chills. He has some pain in the chest as well, which is difficult to describe and duration, but he stated this chest pain has been apparently intermittent in origin. He does occasionally have shortness of breath and wakes him up at night. He uses one Tempur-Pedic pillow and occasionally has palpitation. He has had chronic dizziness and lightheadedness when he stands up. PAST MEDICAL HISTORY: Positive for diabetes. He has had chronic low back pain, thereafter he received some epidural injection with steroids. His blood sugars have been very difficult to control and has been apparently elevated up to 500. No history of heart attack. No high blood pressure. No high cholesterol. No cancer. No stroke. No hepatitis. No tuberculosis. He does have a history of asthma and possibly history of ulcers. He has some kidney problems before. No liver problems. He had prostatic enlargement. He has had problems with low back pain and arthritis, especially of the shoulder. He has been hospitalized at [facility] because of his spine and neck problems, but he does not remember the details. MEDICATIONS: His medications at home are listed including Proscar 5 mg, metformin 500 mg twice a day, Singulair 10 mg a day, Lyrica 75 mg three times a day, hydrocodone, insulin lispro, and simvastatin 5 mg at bedtime. ALLERGIES: He denies any allergies to medication. SOCIAL HISTORY: He does smoke one pack a day. He does not drink alcoholic beverages and does not use drugs. REVIEW OF SYSTEMS: Gastrointestinal: No nausea or vomiting. No diarrhea. No bloody stools or black stools. Genitourinary: Negative. Pulmonary: Positive. Constitutional: Negative. Neurologic: Negative. Musculoskeletal: Significant amount of pain in his low back and in his neck that limits his ambulation. His ambulation is now limited to approximately 7 steps because of the pain in the back as well as the shortness of breath. PHYSICAL EXAMINATION: GENERAL: The patient is an elderly gentleman, in no apparent distress. NECK: Supple. No jugular venous distention is noted. LUNGS: Some end-expiratory and end-inspiratory wheezes are noted. No crackles are noted. Some rhonchi noted. CARDIAC: Regular rate and rhythm. No heaves, thrills, or gallops noted. ABDOMEN: Soft and nontender. Positive bowel sounds. EXTREMITIES: There is no edema. NEUROLOGIC: He is awake, alert, responsive, and he is able to sit up move around in the bed. He is uncomfortable lying in one particular position for very long and he has to sit up at times during the interview. It should be noted that the interview was performed with the patient through one of our Wol[place] speaking staff on the unit. LABORATORY AND DIAGNOSTIC DATA: White count yesterday was 16.7, hemoglobin of 17, and platelet count of 309,000. His sodium this morning is 134, potassium 4.9, chloride 96, bicarbonate 23, BUN of 26, creatinine 1.5, and glucose of 126. His electrolytes yesterday were decreased. The sodium was 126, potassium 6.1, and creatinine at 1.5, but his blood sugar was 503 yesterday and only 126 today. His TSH is normal at 0.356 and free T4 is normal, and free T3 is also normal. Cortisol level that was ordered for today is pending. His digoxin level was 0.4 yesterday, and his urinalysis shows 4+ glucose, 0-2 RBCs and 0-2 WBCs. His urine sodium is 45 and potassium is 40. He had a chest x-ray performed yesterday that showed no acute disease. Telemetry shows normal sinus rhythm. EKG shows normal sinus rhythm from the 07/25/2016 on one occasion and one from the paramedics that showed basically leftward axis, otherwise no ST or T-wave abnormalities being documented on this EKG. One set of troponin was negative yesterday and the repeat troponin that was ordered is not available and pending at this time. An echocardiogram is pending at this time. ASSESSMENT: 1. Upper respiratory tract infection. 2. Asthma exacerbation. 3. Renal insufficiency. 4. Hyponatremia/hyperkalemia. 5. Diabetes mellitus, poor control secondary to recent epidural steroid injection. 6. History of remote tobacco use disorder. 7. History of chronic neck and back pains. 8. Chest pain. PLAN: Dr. Meyer, this patient was seen in cardiac consultation. Repeat cardiac enzymes are pending at this time. The patient wants to go home today and rest. I have explained to him that repeat laboratories and echocardiogram should determine the safety of his discharge. He should have an echocardiogram performed soon and his troponin, if not have been done, it needs to be performed and an EKG that was ordered has not been performed. His cortisol level is pending at this time. It was ordered last night as well. If those cardiac enzymes and echocardiogram showed normal left ventricular systolic function then, if he will be discharged, he needs to follow up with his regular doctor soon for further evaluation. It is not clear to me that this pain is apparently exertion related. He seems to have dyspnea on exertion as well as back pain on exertion that limits his mobility more so than any chest pain, but that needs to be possibly explored further by his primary care doctor if he does not stay in the hospital for further evaluation. Juan Fernandez M.D. DR: TIFFANY JOB#: [id number] CC:
--- NOTE | 2016-07-27 10:36 | Diagnostic Imaging Report ---
Indication: Abnormal renal function tests Technique: Grayscale and duplex images of the kidneys, retroperitoneum, and bladder were obtained. Comparison:None Findings: Right kidney measures 10.3 cm in length. Left kidney measures 10 cm in length. Both kidneys demonstrate normal echogenicity. No hydronephrosis. The right kidney demonstrates a 11 mm cyst in the upper pole. There is questionably an echogenic focus within the right renal sinus. Left kidney demonstrates an exophytic 18 mm cyst.. Normal inferior vena cava. Bladder is normal. Impression: Negative for hydronephrosis Questionable small right renal calyceal nonobstructing calculus Incidental finding bilateral renal cysts.
[2016-07-28 10:32] LABS: CORTISOL 14.5 ug/dL
--- NOTE | 2016-07-29 02:08 | Discharge Summary 2 SIG ---
DATE OF ADMISSION: 07/25/2016 DATE OF DISCHARGE: 07/26/2016 CONSULTANTS: 1. Juan Fernandez M.D. 2. Marques Will M.D. BRIEF HOSPITAL COURSE: The patient is a 75-year-old male, who presented to the ED complaining of shortness of breath and chest pain. He has history of asthma and is a smoker and presented with dry cough for several weeks now. At ED, chest x-ray showed hyperinflated lungs with no infiltrates. Laboratories showed leukocytosis of 16, WBC of 16.5, BUN 27 and creatinine of 1.7. Potassium was elevated to 6.2. He was given insulin, calcium and Kayexalate at ED and was admitted to telemetry for COPD exacerbation and acute respiratory failure and hyperkalemia. He was started on IV steroids and IV antibiotic. Dr. Fernandez was consulted. Digoxin level was 0.4. TSH was normal. EKG showed normal sinus rhythm and on one occasion from paramedics showed basically leftward axis. Otherwise, no ST to T-wave abnormalities documented. Troponin was negative. Dr. Will was consulted for evaluation of leukocytosis. There was leukocytosis with left shift, but no fever. He was pancultured and was started on empiric Zosyn. Blood culture did not isolate any growth. Sputum culture showed normal upper respiratory chidi. Cortisol level normal. Hyperkalemia resolved. Blood sugar was high secondary to use of steroids. Fu7ll treatment was not carried out as patient signed AMA. FINAL DIAGNOSES: 1. Acute respiratory failure. 2. Acute tubular necrosis. 3. Chronic obstructive pulmonary disease exacerbation. 4. Acute asthma exacerbation. 5. Hyperkalemia. 6. Hyponatremia. 7. History of remote tobacco use disorder. 8. Diabetes mellitus, uncontrolled. 9. Leukocytosis, afebrile, on steroids. 10. Chronic neck and back pain. Jhoana Meyer M.D. I have been assigned to dictate discharge summary on this account and I was not involved in the patient's management. Alba Acosta N.P. DR: ZEKE JOB#: [id number] CC: [email or web address]
--- NOTE | 2016-08-27 03:26 | Cardiology Report ---
APPROVED REPORT EKG Measurement Heart [id number] Normal sinus rhythm Left axis deviation Abnormal ECG
--- NOTE | 2016-08-27 03:28 | Cardiology Report ---
APPROVED REPORT EKG Measurement Heart [id number] Normal sinus rhythm Indeterminate axis Borderline ECG
--- NOTE | 2016-08-30 10:04 | Cardiology Report ---
APPROVED REPORT EXAM: Two-dimensional and M-mode echocardiogram with Doppler and color Doppler. INDICATION Left ventricular function M-Mode DIMENSIONS IVSd0.9 (0.7-1.1cm)Left Atrium (MM)1.9 (1.6-4.0cm) LVDd4.0 (3.5-5.6cm)Aortic Root3.4 (2.0-3.7cm) PWd1.1 (0.7-1.1cm)Aortic Cusp Exc.1.6 (1.5-2.0cm) LVDs2.5 (2.5-4.0cm) PWs1.3 cm Technically difficult study due to poor acoustic windows. Patient moving. Normal left ventricular chamber size, systolic function and wall motion. Left ventricular ejection fraction estimated to be 60-65 %. Mild left ventricular hypertrophy. No evidence of pericardial fat or effusion. All other cardiac chamber sizes are within normal limits. Focal aortic valve sclerosis with adequate cusp excursion Thickened mitral valve leaflets with normal excursion. Mild mitral annulus and aortic root calcification. Pulmonic valve not well visualized. Normal tricuspid valve structure. IVC is normal in size with physiologic collapse. A color flow and spectral Doppler study was performed and revealed: No aortic regurgitation. No mitral regurgitation. Left ventricular diastolic dysfunction grade 1. Mild tricuspid regurgitation. Tricuspid systolic velocities suggests peak right ventricular systolic pressure of 20 mmHg
== END 2016-07-26 16:40 | disposition left against medical advice (07) | DRG 190 ==
LOC: EDBD 13:47 → EMR 14:53 → 2E 14:54 → EDBEDREQ 15:40 → 2E 17:13
DX: J44.1 Chronic obstructive pulmonary disease with (acute) exacerbation (principal); N17.0 Acute kidney failure with tubular necrosis; J96.20 Acute and chronic respiratory failure, unspecified whether with hypoxia or hypercapnia; J45.901 Unspecified asthma with (acute) exacerbation; E87.5 Hyperkalemia; E87.1 Hypo-osmolality and hyponatremia; E11.65 Type 2 diabetes mellitus with hyperglycemia; G89.29 Other chronic pain; M54.2 Cervicalgia; M54.9 Dorsalgia, unspecified; I48.91 Unspecified atrial fibrillation; F17.200 Nicotine dependence, unspecified, uncomplicated; D72.829 Elevated white blood cell count, unspecified; T38.0X5A Adverse effect of glucocorticoids and synthetic analogues, initial encounter
CPT/HCPCS: 36415; 71010; 76775; 80048; 80053; 80162; 81001; 81003; 82436; 82533; 82550; 82553; 82962; 83605; 83735; 83880; 83930; 83935; 84100; 84133; 84300; 84439; 84443; 84481; 84484; 84550; 85025; 87040; 87070; 87205; 89050; 93005; 93306; 94640; 94664; J1815; S5561